=== PATIENT | male | born 1925 | race Caucasian/White ===

== ENCOUNTER 2016-11-09 16:01 | Emergency (ER) | payer OTHER, MEDICARE ==
[~2016-11-09] VITALS: Ht 167.6 cm; Wt 94.3 kg
[2016-11-09 16:06] VITALS: BP 103/63
--- NOTE | 2016-11-09 16:11 | ED MVC/FALL/TRAUMA COMPLAINT ---
History of Present Illness General Chief Complaint: Fall Stated Complaint: LEFT ARM AND RIGHT KNEE PAIN S/P FALL Source: patient, family, old records Exam Limitations: no limitations Vital Signs & Intake/Output Vital Signs & Intake/Output Vital Signs Date Time Temp Pulse Resp B/P B/P Pulse O2 O2 Flow FiO2 Mean Ox Delivery Rate 11/09 1631 96 11/09 1606 97.6 90 15 103/63 96 Room Air Room Air Allergies Coded Allergies: No Known Allergies (11/09/16) Reconcile Medications Aspirin (Aspirin*) 81 MG TAB.CHEW 1 TAB PO DAILY [facility] (Reported) Atorvastatin Calcium 20 MG TABLET 1 TAB PO DAILY HLD (Reported) Digoxin 125 MCG TABLET 1 TAB PO DAILY HEART (Reported) Metformin HCl (Fortamet) 500 MG TAB.ER.24 2 TAB PO DAILY DM (Reported) Metoprolol Succ XL (Toprol Xl) 50 MG TAB 0.5 TAB PO DAILY HTN (Reported) Sertraline HCl 50 MG TABLET 1 TAB PO DAILY MENTAL HEALTH (Reported) Tamsulosin HCl (Flomax) 0.4 MG CAP.ER.24H 1 CAP PO DAILY BPH (Reported) Tramadol HCl 50 MG TABLET 1 TAB PO BIDP PRN PAIN Warfarin Sodium (Coumadin) 1 MG TABLET 1 TAB PO DAILY AFIB (Reported) 1 TAB LMEPID-SUOO-ILDTO-SAT 1.5 TAB M-W-F Triage Nurses Notes Reviewed? yes Onset: Abrupt Duration: hour(s): (8), intermittent, waxing and waning Timing: recent history Severity: moderate Severity Numbers: 8 Injuries/Fall Location: upper extremity, lower extremity Method of Injury: fall Loss of Consciousness: no loss of consciousness Modifying Factors: Worsens With: movement. Associated Symptoms: DENIES HPI: 89-year-old male with history of diabetes A. fib on Coumadin presents with his family for evaluation status post fall earlier this morning when he slipped in the bathtub hitting his left shoulder against the ground. He now presents complaining of moderate aching intermittent left shoulder, left elbow and right knee pain. According to the patient's daughter she found him on the ground after she heard the fall there is no apparent loss of consciousness. The patient denies hitting his head no headache no neck or back pain chest pain shortness of breath difficulty breathing pain with inspiration abdominal pain nausea vomiting. He denies any prodromal dizziness lightheadedness prior to his fall. He has not taken anything for his symptoms pain is worse with range of motion better at rest. There's been no change in his mental status per family (DAMON PALOMO) Past History Travel History Traveled to [place] past 21 day No Medical History Any Pertinent Medical History? see below for history Cardiovascular: AFIB Surgical History Surgical History: non-contributory Psychosocial History What is your primary language Wallisian Tobacco Use: Current Daily Use Daily Tobacco Use Amount/Type: => 5 Cigarettes daily Family History Hx Contributory? No (DAMON PALOMO) Review of Systems Review of Systems Constitutional: Reports: see HPI. All Other Systems: Reviewed and Negative Comments Review of systems: See HPI, All other systems negative. Constitutional, no chills no fever, no malaise HEENT: No visual changes no sore throat no congestion, no ear pain Cardiovascular: No chest pain , no palpitation , no orthopnea Skin: no rashes, no change in skin Respiratory: No dyspnea no cough no sputum no hemoptysis GI: No nausea no vomiting, no diarrhea, no bloating/constipation : No dysuria No hematuria, Muscle skeletal: joint pain, no joint swelling, no back pain, no neck pain, Neurologic: No numbness no confusion, no headache Psych: No stress no depression,. Heme/endocrine: No bruising no bleeding Immunology: No lymphadenopathy (DAMON PALOMO) Physical Exam Physical Exam General Appearance: well developed/nourished, alert, awake Comments: Well-developed well-nourished person in no acute distress HEENT: Normal EENT exam; PERRL, EOMI, no nystagmus. HEAD is atraumatic. moist mucous membranes. No signs of trauma Neck: Supple, no midline or paracervical tenderness normal range of motion without pain or tenderness Back: Nontender, no ecchymosis or signs of trauma no CVA tenderness. Full range of motion Cardiovascular: Regular rate and rhythms no murmurs rubs or gallops, normal JVP Respiratory: Chest nontender.There were no bony deformities, no asymmetry. No respiratory distress. Patient speaking in full complete sentences. Breath sounds clear to auscultation bilaterally: NO W/R/R Abdomen: Soft, nontender nondistended, no appreciable organomegaly. Normal bowel sounds. No rebound/guarding, No appreciable enlargement of the abdominal aorta, No ascites. Shoulder: Atraumatic/Stable. Limited range of motion of the left shoulder secondary to pain, there is no obvious deformity no ecchymosis no swelling no clavicular tenderness the right shoulder has full range of motion Elbow: Atraumatic/stable. Limited range of motion left shoulder secondary to pain No laxity Upper arm/Forearm: Atraumatic. Nontender. No edema, 5 out of 5 primer charger strength noted to bilateral upper extremities Hand/Wrist: Atraumatic/stable. Skin intact. FROM no scaphoid tenderness Pulses: Normal/equal radial pulses bilaterally. Brisk cap refill Hip/Pelvis: Atraumatic/Stable. FROM. No pain with pelvic compression no shortening or rotation noted to the lower extremities Knee: The right knee is tender over the anterior aspect of the knee no swelling no ecchymosis no deformity Atraumatic/stable. FROM. No joint swelling, no effusion. No laxity. Negative savannah/anterior drawer test. No pain with ROM Leg: Atraumatic. Nontender. No edema, 5 out of 5 strength in the lower extremity, normal dorsiflexion of great toe bilaterally, gross sensation is intact, patellar tendon reflex 2+ bilaterally. Ankle/Foot: Atraumatic/stable. Skin intact. FROM. No swelling, no effusion. No laxity on exam Pulses: Normal/equal DP/PT pulses bilaterally. Brisk cap refill Neuro: Alert oriented x3, motor sensory normal, cranial nerves II through XII grossly intact. There were no obvious focal neurologic abnormalities. Skin: No appreciable rash on exposed skin, skin is warm and dry. Psych: Mood and affect is normal, memory and judgment is normal. Core Measures ACS in differential dx? No Severe Sepsis Present: No Septic Shock Present: No (LOLLY RICE,DAMON) Progress Differential Diagnosis: abd injury, C/T/L spine injury, ext injury, ICH, spinal cord injury Plan of Care: Orders Procedure Date/time Status Durable Medical Equipment 11/09 180 Active PROTHROMBIN TIME 11/09 1622 Complete COMPREHENSIVE METABOLIC PANEL 11/09 162 Complete CBC WITHOUT DIFFERENTIAL 11/09 162 Complete Laboratory Tests 11/09/16 1626: Anion Gap 13, Estimated GFR > 60, BUN/Creatinine Ratio 21.1, Glucose 141 H, Calcium 8.7, Total Bilirubin 0.5, AST 18, ALT 27, Alkaline Phosphatase 71, Total Protein 6.7, Albumin 3.7, Globulin 3.0, Albumin/Globulin Ratio 1.2, PT 23.2 H, INR 2.23 H, CBC w Diff NO MAN DIFF REQ, RBC 4.12 L, MCV 88.1, MCH 29.9, RDW 14.4, MPV 7.0 L, Gran % 67.2, Lymphocytes % 22.7, Monocytes % 7.7, Eosinophils % 1.8, Basophils % 0.6, Absolute Granulocytes 5.1, Absolute Lymphocytes 1.7, Absolute Monocytes 0.6, Absolute Eosinophils 0.1, Absolute Basophils 0, PUBS MCHC 33.9 Labs ordered old records reviewed CAT scan x-rays ordered patient medicated tramadol CASE D/W dr alvarado On repeat evaluation patient is feeling improved pending results of imaging 11/09/2016 6:06:33 PM patient with better range of motion of the shoulder are discussed with the patient and his family at length all of his results I discussed with the patient at length all of their results. I had an extensive conversation regarding need for close follow up with their primary care physician this week as well as return precautions. I answered all of their questions, they feel comfortable with the plan and follow-up care. I discussed the medications that they will receive with the patient. I gave them signs and symptoms that could indicate an adverse reaction. I have advised them to limit their activities until they can see how they respond to the medication. (LOLLY RICE,DAMON) Diagnostic Imaging: Viewed by Me: Radiology Read, CT Scan. Discussed w/RAD: Radiology Read, CT Scan. Radiology Impression: PATIENT: CHRISTINA SIMON PRESENT AGE: 89 PATIENT ACCOUNT NO: [id number] : [birth year] LOCATION: [facility] ORDERING PHYSICIAN: DAMON RICE SERVICE DATE: 11/09/16 EXAM TYPE: CAT - CT CERV SPINE WO IV CONTRAST; CT HEAD WO IV CONTRAST EXAMINATION: CT HEAD WITHOUT CONTRAST CT CERVICAL SPINE WITHOUT CONTRAST CLINICAL INFORMATION: Trauma. On Coumadin. Assess for intracranial hemorrhage or fracture. COMPARISON: None. TECHNIQUE: Multidetector CT imaging of the head and cervical spine was performed without the use of intravenous contrast. Coronal and sagittal reformatted images were generated at the technologist workstation. DLP: 1065.92 mGy-cm. FINDINGS: CT head: There is no evidence of acute intracranial hemorrhage or territorial infarction. No abnormal mass-effect or midline shift is seen. Mofeftt to white matter differentiation is well preserved. No extra-axial fluid collections are identified. The ventricles and sulci are commensurately prominent consistent with [id number] diffuse volume loss. There is extensive low attenuation in the periventricular and subcortical white matter consistent with sequelae of chronic microvascular ischemic disease. There have been bilateral lens extractions. There are no fractures or large scalp contusions/hematomas. The mastoid air cells are well-aerated. There is atheromatous calcification of the cavernous internal carotid arteries bilaterally. There is mild mucoperiosteal thickening in the anterior ethmoid sinuses. CT cervical spine: There is straightening of the cervical lordosis. There is a levoscoliosis in the upper thoracic spine. There is multilevel narrowing of intervertebral disc height between C3-C4 and C6-C7. There are multilevel marginal osteophytes and degenerative endplate contour changes. There are no acute compression fractures. The lateral masses of C1 and C2 are normally aligned and the dens is intact. The atlantooccipital alignment appears normal. There are extensive atheromatous calcifications of the carotid bifurcations and moderate changes are seen in the aortic arch. The visualized lung apices are well-aerated. IMPRESSION: 1. There are no acute intracranial bleeds or territorial infarcts. 2. There are no calvarial fractures or large scalp contusions. 3. There are multilevel degenerative changes in the cervical spine. 4. There are no acute fractures or subluxations in the cervical spine. DICTATED BY: COURTNEY HOLLINS MD DATE/TIME DICTATED:11/09/161706 CMO & PRESIDENT:VIOLETTA DATE/TIME TRANSCRIBED:11/09/161706 CONFIDENTIAL, DO NOT COPY WITHOUT APPROPRIATE AUTHORIZATION. <Electronically signed in Other Vendor System> SIGNED BY: COURTNEY HOLLINS MD 11/09/161718, PATIENT: CHRISTINA SIMON SR PRESENT AGE: 89 PATIENT ACCOUNT NO: [id number] : [birth year] LOCATION: [facility] ORDERING PHYSICIAN: DAMON RICE SERVICE DATE: 11/09/16 EXAM TYPE: RAD - XRY-ELBOW 3 OR MORE VIEWS, L; XRY-KNEE COMPLETE RIGHT; XRY- SHOULDER COMPLETE-LEFT; XRY-WRIST COMPLETE-LEFT EXAMINATION: XR SHOULDER, LEFT XR KNEE, RIGHT XR WRIST, LEFT XR ELBOW, LEFT CLINICAL INFORMATION: Left shoulder , elbow, and wrist as well as right knee pain following a fall. COMPARISON: No relevant prior studies are available for comparison. TECHNIQUE: AP external rotation, Grashey and scapular Y views of the left shoulder. AP, oblique, and lateral views of the left elbow. AP, lateral, oblique, and scaphoid views of the left wrist. AP, bilateral oblique, and lateral views of the right knee. FINDINGS : LEFT SHOULDER: Apparent posterior subluxation of the humeral head, which may be related to technique. Axillary views or repeat scapular Y views could help further characterize if clinically indicated. No displaced fracture. Marginal osteophytes at the acromioclavicular and glenohumeral joints. Irregularity of the glenoid, which could be degenerative. Subchondral cysts within the superior glenoid. Glenohumeral chondrocalcinosis. LEFT ELBOW: No fracture. Small marginal osteophytes. Enthesophyte at the olecranon process. Lobulated ossification adjacent to the lateral epicondyle, likely representing a remote tendon injury. No significant elbow joint effusion. LEFT WRIST: No fracture. Severe degenerative changes characterized by bony remodeling at the 1st carpometacarpal joint, including joint space narrowing, subchondral sclerosis, and marginal osteophytes. Associated subluxation of the 1st metacarpal. Additional mild degenerative changes throughout the carpus. Carpal alignment is within normal limits. RIGHT KNEE: Severe medial compartment joint space narrowing with associated medial femoral condyle and medial tibial plateau bony remodeling. Tricompartmental marginal osteophytes. No osseous erosion. No fracture. Tricompartmental chondrocalcinosis. Trace joint effusion. IMPRESSION: LEFT SHOULDER: Apparent posterior subluxation of the humeral head, which may be positional and related to technique. Axillary views or repeat scapular Y views could help further characterize if clinically indicated. 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 LEFT ELBOW: Moderate osteoarthritis. Olecranon process enthesophyte. Ossification adjacent to the lateral epicondyle, likely representing a remote tendon injury. LEFT WRIST: Severe degenerative changes and subluxation at the 1st carpometacarpal joint. Mild degenerative changes scattered throughout the carpus. RIGHT KNEE: Severe medial compartment as well as moderate patellofemoral and lateral compartment osteoarthritis. Tricompartmental chondrocalcinosis. DICTATED BY: IRAJ COONEY MD DATE/TIME DICTATED:11/09/161729 CMO & PRESIDENT:VIOLETTA DATE/TIME TRANSCRIBED:1729 CONFIDENTIAL, DO NOT COPY WITHOUT APPROPRIATE AUTHORIZATION. < Electronically signed in Other Vendor System> SIGNED BY: IRAJ COONEY MD 11/09/161750 (DAMON PALOMO) Departure Departure Time of Disposition: 1800 Disposition: HOME OR SELF CARE Condition: Stable Clinical Impression Primary Impression: Shoulder sprain Secondary Impressions: Fall, Knee sprain Additional Instructions: Rest ice Tylenol Motrin, tramadol as needed for breakthrough pain shoulder sling as discussed. Follow up with your primary care physician on Friday, return to emergency room anytime sooner with any concerns or worsening of her symptoms. Departure Forms: Customer Survey General Discharge Information Prescriptions: Current Visit Scripts Tramadol HCl 1 TAB PO BIDP PRN PAIN #10 TAB (DAMON PALOMO) PA/WELL SERVICING RIG OPERATOR Co-Sign Statement Statement: ED Attending supervision documentation- [] I saw and evaluated the patient. I have also reviewed all the pertinent lab results and diagnostic results. I agree with the findings and the plan of care as documented in the PA's/WELL SERVICING RIG OPERATOR's documentation. [X] I have reviewed the ED Record and agree with the PA's/WELL SERVICING RIG OPERATOR's documentation. [] Additions or exceptions (if any) to the PAs/WELL SERVICING RIG OPERATOR's note and plan are summarized below: [] (EITAN PORRAS,FEDERICA Rodriguez)
[2016-11-09 16:30] LABS: ABSOLUTE BASOPHIL COUNT 0 /CUMM (0.0-0.2); ABSOLUTE EOSINOPHIL COUNT 0.1 /CUMM (0.0-0.7); ABSOLUTE GRANULOCYTE CT 5.1 /CUMM (1.4-6.5); ABSOLUTE LYMPH COUNT 1.7 /CUMM (1.2-3.4); ABSOLUTE MONOCYTE COUNT 0.6 /CUMM (0.10-0.60); BASOPHIL % 0.6 % (0.0-2.0); EOSINOPHIL % 1.8 % (0-5); GRANULOCYTE % 67.2 % (42.2-75.2); HEMATOCRIT 36.3 % (42-52); MEAN CORPUSCULAR HGB 29.9 PG (27.0-31.0); MEAN CORPUSCULAR HGB CONC 33.9 G/DL (33.0-37.0); MEAN CORPUSCULAR VOLUME 88.1 FL (80.0-94.0); PLATELET COUNT 298 /CUMM (130-400); RBC DISTRIBUTION WIDTH 14.4 % (11.5-14.5); RED BLOOD CELL CT 4.12 /CUMM (4.70-6.10); WHITE BLOOD CELL COUNT 7.5 /CUMM (4.8-10.8)
[2016-11-09] MEDS ORDERED: TOPROL XL50 M1 PO (16:33)
[2016-11-09] MEDS ORDERED: COUMADIN1 M1 PO (16:33)
[2016-11-09] MEDS ORDERED: FLOMAX0.4 M1 PO (16:34)
[2016-11-09] MEDS ORDERED: ATORVASTATIN CA20 M1 PO (16:34)
[2016-11-09] MEDS ORDERED: SERTRALINE HCL50 MG PO (16:34)
[2016-11-09] MEDS ORDERED: FORTAMET500 MG PO (16:34)
[2016-11-09] MEDS ORDERED: DIGOXIN125 MCG PO (16:35)
[2016-11-09] MEDS ORDERED: ASPIRIN81 M4 PO (16:35)
[2016-11-09 16:37] LABS: PT 23.2 SEC (9.4-12.5)
--- NOTE | 2016-11-09 17:19 | CT SCAN REPORT ---
EXAMINATION: CT HEAD WITHOUT CONTRAST CT CERVICAL SPINE WITHOUT CONTRAST CLINICAL INFORMATION: Trauma. On Coumadin. Assess for intracranial hemorrhage or fracture. COMPARISON: None. TECHNIQUE: Multidetector CT imaging of the head and cervical spine was performed without the use of intravenous contrast. Coronal and sagittal reformatted images were generated at the technologist workstation. DLP: 1065.92 mGy-cm. FINDINGS: CT head: There is no evidence of acute intracranial hemorrhage or territorial infarction. No abnormal mass-effect or midline shift is seen. Moffett to white matter differentiation is well preserved. No extra-axial fluid collections are identified. The ventricles and sulci are commensurately prominent consistent with trgn-vw-[id number] diffuse volume loss. There is extensive low attenuation in the periventricular and subcortical white matter consistent with sequelae of chronic microvascular ischemic disease. There have been bilateral lens extractions. There are no fractures or large scalp contusions/hematomas. The mastoid air cells are well-aerated. There is atheromatous calcification of the cavernous internal carotid arteries bilaterally. There is mild mucoperiosteal thickening in the anterior ethmoid sinuses. CT cervical spine: There is straightening of the cervical lordosis. There is a levoscoliosis in the upper thoracic spine. There is multilevel narrowing of intervertebral disc height between C3-C4 and C6-C7. There are multilevel marginal osteophytes and degenerative endplate contour changes. There are no acute compression fractures. The lateral masses of C1 and C2 are normally aligned and the dens is intact. The atlantooccipital alignment appears normal. There are extensive atheromatous calcifications of the carotid bifurcations and moderate changes are seen in the aortic arch. The visualized lung apices are well-aerated. IMPRESSION: 1. There are no acute intracranial bleeds or territorial infarcts. 2. There are no calvarial fractures or large scalp contusions. 3. There are multilevel degenerative changes in the cervical spine. 4. There are no acute fractures or subluxations in the cervical spine.
--- NOTE | 2016-11-09 17:51 | RADIOLOGY REPORT ---
EXAMINATION: XR SHOULDER, LEFT XR KNEE, RIGHT XR WRIST, LEFT XR ELBOW, LEFT CLINICAL INFORMATION: Left shoulder, elbow, and wrist as well as right knee pain following a fall. COMPARISON: No relevant prior studies are available for comparison. TECHNIQUE: AP external rotation, Grashey and scapular Y views of the left shoulder. AP, oblique, and lateral views of the left elbow. AP, lateral, oblique, and scaphoid views of the left wrist. AP, bilateral oblique, and lateral views of the right knee. FINDINGS: LEFT SHOULDER: Apparent posterior subluxation of the humeral head, which may be related to technique. Axillary views or repeat scapular Y views could help further characterize if clinically indicated. No displaced fracture. Marginal osteophytes at the acromioclavicular and glenohumeral joints. Irregularity of the glenoid, which could be degenerative. Subchondral cysts within the superior glenoid. Glenohumeral chondrocalcinosis. LEFT ELBOW: No fracture. Small marginal osteophytes. Enthesophyte at the olecranon process. Lobulated ossification adjacent to the lateral epicondyle, likely representing a remote tendon injury. No significant elbow joint effusion. LEFT WRIST: No fracture. Severe degenerative changes characterized by bony remodeling at the 1st carpometacarpal joint, including joint space narrowing, subchondral sclerosis, and marginal osteophytes. Associated subluxation of the 1st metacarpal. Additional mild degenerative changes throughout the carpus. Carpal alignment is within normal limits. RIGHT KNEE: Severe medial compartment joint space narrowing with associated medial femoral condyle and medial tibial plateau bony remodeling. Tricompartmental marginal osteophytes. No osseous erosion. No fracture. Tricompartmental chondrocalcinosis. Trace joint effusion. IMPRESSION: LEFT SHOULDER: Apparent posterior subluxation of the humeral head, which may be positional and related to technique. Axillary views or repeat scapular Y views could help further characterize if clinically indicated. 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 LEFT ELBOW: Moderate osteoarthritis. Olecranon process enthesophyte. Ossification adjacent to the lateral epicondyle, likely representing a remote tendon injury. LEFT WRIST: Severe degenerative changes and subluxation at the 1st carpometacarpal joint. Mild degenerative changes scattered throughout the carpus. RIGHT KNEE: Severe medial compartment as well as moderate patellofemoral and lateral compartment osteoarthritis. Tricompartmental chondrocalcinosis.
[2016-11-09] MEDS ORDERED: TRAMADOL HCL50 M1 PO (18:02)
== END 2016-11-09 18:10 ==
LOC: ERH 16:01
PROVIDERS: Physician Assistant Medical
DX: S43.402A Unspecified sprain of left shoulder joint, initial encounter (principal); S83.91XA Sprain of unspecified site of right knee, initial encounter; M25.522 Pain in left elbow; W18.2XXA Fall in (into) shower or empty bathtub, initial encounter; Y93.E1 Activity, personal bathing and showering; Y92.9 Unspecified place or not applicable; I48.91 Unspecified atrial fibrillation
CPT/HCPCS: 73030-LT; 73080-LT; 73110-LT; 73562-RT